=== PATIENT | female | born 1955 | race Caucasian/White ===

== ENCOUNTER 2019-01-22 17:04 | Inpatient (IN) ==
[2019-01-22] MEDS ORDERED: hydrALAZINE 20 MG/1 ML VIAL IV STA (19:09)
[2019-01-22 20:10] LABS: PT Patient Result 10.4 SECS; Partial Thromboplastin Time 24.3 SECS (0-40)
[2019-01-22 20:10] LABS: Alanine Aminotransferase 39 U/L (13-56); Albumin 3.2 G/DL (3.4-5.0); Alkaline Phosphatase 123 U/L (45-117); Aspartate Amino Transferase 20 U/L (0-37); Bilirubin,Total < 0.39 MG/DL (0.2-1.0); Blood Urea Nitrogen 18 MG/DL (7-18); Calcium 9.3 MG/DL (8.5-10.1); Glucose 96 MG/DL (74-106); Osmolality,Calculated 269.2 MOS/KG (273-304); Potassium 3.8 MMOL/L (3.5-5.1); Sodium 134 MMOL/L (136-145); Total Protein 8.3 G/DL (6.4-8.3)
[2019-01-22 20:19] LABS: Basophils # 0.1 10*3/uL (0.0-0.2); Basophils % 0.6 % (0.0-0.8); Eosinophils # 0.5 10*3/uL (0.0-0.87); Eosinophils % 3.3 % (0.00-10.9); Hematocrit 36.4 VOL% (35.7-47.0); Hemoglobin 11.2 GM/DL (12.0-16.0); Immature Granulocytes % 0.7 %; Immature Granulocytes Absolute 0.11 #; Lymphocytes # 2.7 10*3/uL (1.4-4.0); Lymphocytes % 16.4 % (21.3-54.2); Mean Corpuscular HGB Conc 30.8 GM/DL (32-36); Mean Corpuscular Hemoglobin 30 PG (27-34); Mean Corpuscular Volume 97.1 FL (87-102); Mean Platelet Volume 10.8 FL (9.6-12.0); Neutrophils # 11.9 10*3/uL (1.4-7.4); Platelet Count 218 T/CUMM (130-400); Red Blood Count 3.75 MC/CUMM (3.8-5.5); Red Cell Distribution Width 12.9 % (9.3-17.3); White Blood Count 16.3 T/CUMM (4-12)
[2019-01-22] MEDS ORDERED: ONDANSETRON 4 MG/2 ML VIAL IV PRN (22:26)
[2019-01-22] MEDS ORDERED: ACETAMINOPHEN 325 MG TABLET PO PRN (22:26)
[2019-01-22] MEDS ORDERED: ALBUTEROL/IPRATROPIUM 3 ML NEB RESP TX PRN (22:36)
[2019-01-22] MEDS ORDERED: tiZANidine 4 MG TABLET PO PRN (22:38)
[2019-01-22] MEDS ORDERED: LABETALOL 20 MG/4 ML SYRINGE IV PRN (23:59)
[2019-01-23] MEDS: CARVEDILOL 12.5 MG TABLET PO SCH ×3 (00:16→16:33)
[2019-01-23] MEDS: LISINOPRIL 10 MG TABLET PO SCH ×2 (00:16→21:47)
[2019-01-23] MEDS: FOLIC ACID 1 MG TABLET PO SCH ×2 (00:17→21:47)
[2019-01-23] MEDS: SERTRALINE 100 MG TABLET PO SCH ×2 (00:17→21:47)
[2019-01-23] MEDS: LEVOFLOXACIN INJ 750 MG in PREMIX 1 EACH IV SCH (00:27)
[2019-01-23 07:48] LABS: Basophils # 0.1 10*3/uL (0.0-0.2); Basophils % 0.5 % (0.0-0.8); Eosinophils # 0.4 10*3/uL (0.0-0.87); Eosinophils % 3.1 % (0.00-10.9); Hematocrit 33.3 VOL% (35.7-47.0); Hemoglobin 10.2 GM/DL (12.0-16.0); Immature Granulocytes % 0.4 %; Immature Granulocytes Absolute 0.05 #; Lymphocytes # 2.2 10*3/uL (1.4-4.0); Mean Corpuscular HGB Conc 30.6 GM/DL (32-36); Mean Corpuscular Hemoglobin 30 PG (27-34); Mean Corpuscular Volume 98.8 FL (87-102); Mean Platelet Volume 10.1 FL (9.6-12.0); Monocytes % 8.4 % (1.7-12.7); Neutrophils # 8.6 10*3/uL (1.4-7.4); Neutrophils % 69.6 % (38.7-73.9); Platelet Count 185 T/CUMM (130-400); Red Blood Count 3.37 MC/CUMM (3.8-5.5); Red Cell Distribution Width 13.1 % (9.3-17.3); White Blood Count 12.4 T/CUMM (4-12)
[2019-01-23] MEDS: PANTOPRAZOLE 40 MG TABLET PO SCH (08:51)
[2019-01-23] MEDS: FUROSEMIDE 20 MG TABLET PO SCH (08:51)
[2019-01-23 12:49] LABS: Total Protein,Body Fluid 3.4 G/DL
[2019-01-23 13:08] LABS: Lymphocytes,Pleural Fluid 100 %; RBC,Pleural Fluid > 100000 T/CUMM
[2019-01-23] MEDS ORDERED: Osimertinib Mesylate [Tagrisso] 80 MG PO SCH (18:00)
[2019-01-23] MEDS ORDERED: LOPERAMIDE 2 MG CAPSULE PO PRN (18:58)
[2019-01-23] MEDS: LACTOBACILLUS ACIDOPHILUS/BULGARICUS CAPLET PO SCH (21:46)
[2019-01-24] MEDS: LEVOFLOXACIN INJ 750 MG in PREMIX 1 EACH IV SCH ×2 (00:24→22:51)
[2019-01-24] MEDS: LACTOBACILLUS ACIDOPHILUS/BULGARICUS CAPLET PO SCH ×2 (09:27→22:44)
[2019-01-24] MEDS: FUROSEMIDE 20 MG TABLET PO SCH (09:27)
[2019-01-24] MEDS: PANTOPRAZOLE 40 MG TABLET PO SCH (09:28)
[2019-01-24] MEDS: CARVEDILOL 12.5 MG TABLET PO SCH ×2 (09:28→16:28)
[2019-01-24] MEDS: FOLIC ACID 1 MG TABLET PO SCH (22:45)
[2019-01-24] MEDS: LISINOPRIL 10 MG TABLET PO SCH (22:45)
[2019-01-24] MEDS: SERTRALINE 100 MG TABLET PO SCH (22:45)
[2019-01-25 08:23] VITALS: BP 153/93
[2019-01-25] MEDS: LACTOBACILLUS ACIDOPHILUS/BULGARICUS CAPLET PO SCH (08:36)
[2019-01-25] MEDS: FUROSEMIDE 20 MG TABLET PO SCH (08:36)
[2019-01-25] MEDS: CARVEDILOL 12.5 MG TABLET PO SCH (08:36)
[2019-01-25] MEDS: PANTOPRAZOLE 40 MG TABLET PO SCH (08:36)
[2019-01-25] MEDS ORDERED: cefTRIAXone 1,000 MG in SYRINGE 1 EACH IV SCH (10:00)
[2019-01-25] MEDS ORDERED: HEPARIN LOCK FLUSH 500 UNIT/5 ML SYRINGE IV ONE (10:06)
== END 2019-01-25 10:55 | disposition home or self-care (01) | DRG 180 ==
LOC: N.ED 17:04 → N.EDINP 22:26 → N.TELES 23:32 → N.4E 01-25 06:29
PROVIDERS: ADMIT Hospitalist; ATTEND Hospitalist

== ENCOUNTER 2019-12-27 22:25 | Inpatient (IN) ==
[2019-12-28] MEDS ORDERED: NOREPINEPHRINE 4 MG/4 ML VIAL IV ONE (00:06)
[2019-12-28] MEDS ORDERED: NOREPINEPHRINE 8 MG in SODIUM CHLORIDE 0.9% 242 ML IV PRN (00:10)
[2019-12-28] MEDS ORDERED: ALBUTEROL/IPRATROPIUM 3 ML NEB RESP TX PRN (00:55)
[2019-12-28] MEDS ORDERED: SODIUM CHLORIDE 0.9% 1,000 ML IV PRN (00:56)
[2019-12-28] MEDS ORDERED: SODIUM CHLORIDE 0.45% 1,000 ML IV SCH (01:00)
[2019-12-28] MEDS: methylPREDNISolone SOD SUC 40 MG/1 ML VIAL IV SCH ×3 (01:05→17:32)
[2019-12-28] MEDS: ONDANSETRON 4 MG/2 ML VIAL IV PRN ×2 (01:08→21:02)
[2019-12-28] MEDS: MORPHINE 4 MG/1 ML VIAL IV PRN ×3 (01:09→20:57)
[2019-12-28] MEDS: SODIUM CHLORIDE 0.9% 1,000 ML IV SCH (01:59)
[2019-12-28] MEDS: PIPERACILLIN/TAZOBACTAM 3,375 MG in SODIUM CHLORIDE 0.9% 100 ML IV SCH ×3 (02:03→17:32)
[2019-12-28 02:10] LABS: Basophils % 0.3 % (0.0-0.8); Eosinophils % 0.4 % (0.00-10.9); Hemoglobin 6.5 GM/DL (12.0-16.0); Immature Granulocytes % 5.6 %; Immature Granulocytes Absolute 0.42 #; Lymphocytes # 1.4 10*3/uL (1.4-4.0); Lymphocytes % 18.8 % (21.3-54.2); Mean Corpuscular Volume 110.5 FL (87-102); Mean Platelet Volume 11.3 FL (9.6-12.0); Monocytes % 4.5 % (1.7-12.7); NRBC # 0.02 10*3/uL; Neutrophils % 70.4 % (38.7-73.9); Platelet Count 104 T/CUMM (130-400); Red Cell Distribution Width 22.9 % (9.3-17.3); White Blood Count 7.5 T/CUMM (4-12)
[2019-12-28 02:33] LABS: Bilirubin,Total 0.9 MG/DL (0.2-1.0); Calcium 7.9 MG/DL (8.5-10.1); Osmolality,Calculated 291.8 MOS/KG (273-304); Total Protein 5.1 G/DL (6.4-8.3)
[2019-12-28 02:37] LABS: Band Neutrophils 1 % (0-10); Lymphocytes 12 % (20-55); Metamyelocytes 1 %; Nucleated Red Blood Cells 1 (0-5); Platelet Estimate Normal; Segmented Neutrophils 83 % (50-85); Total Cells Counted 100
[2019-12-28 02:38] LABS: Anisocytosis 2+; Macrocytosis 1+
[2019-12-28 02:39] LABS: Spherocytes Few
[2019-12-28 02:40] LABS: Polychromasia Slight
[2019-12-28 09:10] LABS: Apearance,Urine CLOUDY (Clear); Bacteria,Urine Occasional /HPF (Few); Bilirubin,Urine Negative (Negative); Blood, Urine Small mg/dL (Negative); Glucose,Urine (UA) Negative (Negative); Hyaline Casts,Urine 7 /LPF (0-3); Ketones,Urine Negative (Negative); Mucus,Urine Occasional /LPF (Occasional); Nitrite,Urine Positive (Negative); Protein,Urine Negative; RBC,Urine 6 /HPF (0-4); Squamous Epithelial Cell,Urine Occasional /HPF (0-10); Urine Color Amber (Yellow); Urine Specific Gravity 1.015 (1.001-1.035); WBC,Urine 12 /HPF (0-6)
[2019-12-28 09:29] LABS: Basophils % 0.3 % (0.0-0.8); Eosinophils % 0.1 % (0.00-10.9); Hematocrit 29.8 VOL% (35.7-47.0); Hemoglobin 9.5 GM/DL (12.0-16.0); Immature Granulocytes % 8.1 %; Immature Granulocytes Absolute 0.55 #; Lymphocytes # 0.9 10*3/uL (1.4-4.0); Lymphocytes % 13.4 % (21.3-54.2); Mean Corpuscular HGB Conc 31.9 GM/DL (32-36); Mean Platelet Volume 10.6 FL (9.6-12.0); Monocytes % 2.7 % (1.7-12.7); Neutrophils % 75.4 % (38.7-73.9); Platelet Count 91 T/CUMM (130-400); Red Blood Count 2.98 MC/CUMM (3.8-5.5); Red Cell Distribution Width 22.9 % (9.3-17.3); White Blood Count 6.8 T/CUMM (4-12)
[2019-12-28] MEDS: ENOXAPARIN 120 MG/0.8 ML SYRINGE SUBCUT SCH (09:30)
[2019-12-28] MEDS: PANTOPRAZOLE 40 MG TABLET PO SCH (09:31)
[2019-12-28 10:10] LABS: Band Neutrophils 1 % (0-10); Hypochromasia 1+; Lymphocytes 13 % (20-55); Ovalocytes Slight; Platelet Estimate Decreased; Segmented Neutrophils 86 % (50-85); Total Cells Counted 100
[2019-12-28] MEDS: FOLIC ACID 1 MG TABLET PO SCH (21:08)
[2019-12-29] MEDS: PIPERACILLIN/TAZOBACTAM 3,375 MG in SODIUM CHLORIDE 0.9% 100 ML IV SCH ×3 (02:12→17:00)
[2019-12-29] MEDS: SODIUM CHLORIDE 0.9% 1,000 ML IV SCH ×3 (02:13→21:11)
[2019-12-29 06:06] LABS: Basophils % 0.3 % (0.0-0.8); Hematocrit 28.8 VOL% (35.7-47.0); Hemoglobin 9.3 GM/DL (12.0-16.0); Immature Granulocytes % 7.6 %; Immature Granulocytes Absolute 0.88 #; Lymphocytes # 1.6 10*3/uL (1.4-4.0); Lymphocytes % 13.9 % (21.3-54.2); Mean Corpuscular HGB Conc 32.3 GM/DL (32-36); Mean Platelet Volume 10.7 FL (9.6-12.0); NRBC # 0.06 10*3/uL; Neutrophils % 73.2 % (38.7-73.9); Platelet Count 80 T/CUMM (130-400); Red Blood Count 2.91 MC/CUMM (3.8-5.5); Red Cell Distribution Width 23.8 % (9.3-17.3); White Blood Count 11.6 T/CUMM (4-12)
[2019-12-29 06:21] LABS: Albumin 2.2 G/DL (3.4-5.0); Bilirubin,Total 0.9 MG/DL (0.2-1.0); Calcium 8.4 MG/DL (8.5-10.1); Osmolality,Calculated 285.2 MOS/KG (273-304); Total Protein 5.5 G/DL (6.4-8.3)
[2019-12-29 06:25] LABS: Band Neutrophils 1 % (0-10); Hypochromasia 1+; Lymphocytes 19 % (20-55); Platelet Estimate Decreased; Segmented Neutrophils 75 % (50-85); Total Cells Counted 100
[2019-12-29] MEDS: ENOXAPARIN 120 MG/0.8 ML SYRINGE SUBCUT SCH (09:40)
[2019-12-29] MEDS: methylPREDNISolone SOD SUC 40 MG/1 ML VIAL IV SCH ×2 (09:40→21:08)
[2019-12-29] MEDS: PANTOPRAZOLE 40 MG TABLET PO SCH (09:40)
[2019-12-29] MEDS: MORPHINE 4 MG/1 ML VIAL IV PRN (12:35)
[2019-12-29] MEDS: ONDANSETRON 4 MG/2 ML VIAL IV PRN ×2 (12:36→16:51)
[2019-12-29] MEDS ORDERED: tiZANidine 4 MG TABLET PO PRN (15:56)
[2019-12-29] MEDS: carvediloL 12.5 MG TABLET PO SCH (21:07)
[2019-12-29] MEDS: SERTRALINE 100 MG TABLET PO SCH (21:07)
[2019-12-29] MEDS: lisinopriL 10 MG TABLET PO SCH (21:07)
[2019-12-29] MEDS: FOLIC ACID 1 MG TABLET PO SCH (21:07)
[2019-12-30] MEDS: PIPERACILLIN/TAZOBACTAM 3,375 MG in SODIUM CHLORIDE 0.9% 100 ML IV SCH ×2 (01:48→09:20)
[2019-12-30 04:16] LABS: Basophils % 0.1 % (0.0-0.8); Hematocrit 26.3 VOL% (35.7-47.0); Hemoglobin 8.3 GM/DL (12.0-16.0); Immature Granulocytes % 5.4 %; Immature Granulocytes Absolute 0.47 #; Lymphocytes # 1.2 10*3/uL (1.4-4.0); Lymphocytes % 13.3 % (21.3-54.2); Mean Corpuscular HGB Conc 31.6 GM/DL (32-36); Mean Corpuscular Volume 101.5 FL (87-102); Mean Platelet Volume 11.5 FL (9.6-12.0); Monocytes % 6.1 % (1.7-12.7); NRBC # 0.13 10*3/uL; Neutrophils % 75.1 % (38.7-73.9); Platelet Count 73 T/CUMM (130-400); Red Blood Count 2.59 MC/CUMM (3.8-5.5); Red Cell Distribution Width 23.3 % (9.3-17.3); White Blood Count 8.7 T/CUMM (4-12)
[2019-12-30 04:40] LABS: Band Neutrophils 1 % (0-10); Hypochromasia 1+; Lymphocytes 14 % (20-55); Ovalocytes Slight; Platelet Estimate Decreased; Segmented Neutrophils 81 % (50-85); Total Cells Counted 100
[2019-12-30 04:46] LABS: Calcium 8.1 MG/DL (8.5-10.1); Osmolality,Calculated 288.1 MOS/KG (273-304)
[2019-12-30] MEDS ORDERED: TUBERCULIN SKIN TEST 0.1 ML SYRINGE INTRADERM ONE (08:36)
[2019-12-30] MEDS: SERTRALINE 100 MG TABLET PO SCH ×3 (09:21→20:37)
[2019-12-30] MEDS: carvediloL 12.5 MG TABLET PO SCH ×2 (09:21→20:37)
[2019-12-30] MEDS: PANTOPRAZOLE 40 MG TABLET PO SCH (09:21)
[2019-12-30] MEDS: MORPHINE 4 MG/1 ML VIAL IV PRN (09:22)
[2019-12-30] MEDS: SODIUM CHLORIDE 0.9% 1,000 ML IV SCH ×2 (09:26→19:24)
[2019-12-30] MEDS: APIXABAN 5 MG TABLET PO SCH ×2 (11:22→20:38)
[2019-12-30] MEDS: cephALEXin 500 MG CAPSULE PO SCH (20:37)
[2019-12-30] MEDS: lisinopriL 10 MG TABLET PO SCH (20:37)
[2019-12-30] MEDS: FOLIC ACID 1 MG TABLET PO SCH (20:37)
[2019-12-31 05:34] LABS: Basophils % 0.3 % (0.0-0.8); Eosinophils % 0.1 % (0.00-10.9); Hematocrit 26.2 VOL% (35.7-47.0); Hemoglobin 8.4 GM/DL (12.0-16.0); Lymphocytes # 1.6 10*3/uL (1.4-4.0); Lymphocytes % 16.1 % (21.3-54.2); Mean Corpuscular HGB Conc 32.1 GM/DL (32-36); Mean Corpuscular Volume 101.9 FL (87-102); Mean Platelet Volume 11.8 FL (9.6-12.0); Monocytes % 4.8 % (1.7-12.7); NRBC # 0.29 10*3/uL; Neutrophils % 69.7 % (38.7-73.9); Red Blood Count 2.57 MC/CUMM (3.8-5.5); Red Cell Distribution Width 23.2 % (9.3-17.3)
[2019-12-31 05:36] LABS: Platelet Count 64 T/CUMM (130-400)
[2019-12-31 06:08] LABS: Hypochromasia 1+; Lymphocytes 19 % (20-55); Nucleated Red Blood Cells 3 (0-5); Platelet Estimate Decreased; Segmented Neutrophils 80 % (50-85); Total Cells Counted 100
[2019-12-31] MEDS ORDERED: SODIUM CHLORIDE 0.9% 500 ML IV ONE ×2 (08:14→13:56)
[2019-12-31] MEDS: APIXABAN 5 MG TABLET PO SCH ×2 (09:28→20:29)
[2019-12-31] MEDS: SERTRALINE 100 MG TABLET PO SCH ×3 (09:28→20:29)
[2019-12-31] MEDS: carvediloL 12.5 MG TABLET PO SCH ×2 (09:28→20:30)
[2019-12-31] MEDS: cephALEXin 500 MG CAPSULE PO SCH ×2 (09:28→20:28)
[2019-12-31] MEDS: PANTOPRAZOLE 40 MG TABLET PO SCH (09:28)
[2019-12-31] MEDS ORDERED: KETOROLAC 15 MG/1 ML VIAL IV ONE (18:41)
[2019-12-31] MEDS: FOLIC ACID 1 MG TABLET PO SCH (20:29)
[2019-12-31] MEDS: SODIUM CHLORIDE 0.9% 1,000 ML IV SCH (20:32)
[2020-01-01] MEDS: APIXABAN 5 MG TABLET PO SCH ×2 (09:05→21:15)
[2020-01-01] MEDS: cephALEXin 500 MG CAPSULE PO SCH ×2 (09:05→21:15)
[2020-01-01] MEDS: SERTRALINE 100 MG TABLET PO SCH ×3 (09:05→21:15)
[2020-01-01] MEDS: PANTOPRAZOLE 40 MG TABLET PO SCH (09:05)
[2020-01-01] MEDS: carvediloL 12.5 MG TABLET PO SCH ×2 (09:05→21:15)
[2020-01-01] MEDS: ONDANSETRON 4 MG/2 ML VIAL IV PRN (09:22)
[2020-01-01 11:18] LABS: Basophils # 0.1 10*3/uL (0.0-0.2); Basophils % 0.4 % (0.0-0.8); Eosinophils # 0.1 10*3/uL (0.0-0.87); Eosinophils % 0.4 % (0.00-10.9); Hematocrit 27.5 VOL% (35.7-47.0); Hemoglobin 8.5 GM/DL (12.0-16.0); Immature Granulocytes % 11.5 %; Lymphocytes # 1.8 10*3/uL (1.4-4.0); Lymphocytes % 13.1 % (21.3-54.2); Mean Corpuscular HGB Conc 30.9 GM/DL (32-36); Mean Corpuscular Volume 103.4 FL (87-102); Monocytes % 9.2 % (1.7-12.7); NRBC # 0.51 10*3/uL; Neutrophils % 65.4 % (38.7-73.9); Red Blood Count 2.66 MC/CUMM (3.8-5.5); Red Cell Distribution Width 23.1 % (9.3-17.3)
[2020-01-01 11:20] LABS: Platelet Count 80 T/CUMM (130-400); White Blood Count 13.9 T/CUMM (4-12)
[2020-01-01 11:40] LABS: Band Neutrophils 1 % (0-10); Lymphocytes 14 % (20-55); Myelocytes 1 %; Nucleated Red Blood Cells 1 (0-5); Segmented Neutrophils 79 % (50-85); Total Cells Counted 100
[2020-01-01 11:41] LABS: Hypochromasia 1+; Macrocytosis 1+
[2020-01-01 11:43] LABS: Polychromasia Slight
[2020-01-01 11:44] LABS: Platelet Estimate Decreased
[2020-01-01] MEDS: MORPHINE 4 MG/1 ML VIAL IV PRN (12:16)
[2020-01-01] MEDS: FOLIC ACID 1 MG TABLET PO SCH (21:15)
[2020-01-02] MEDS: SODIUM CHLORIDE 0.9% 1,000 ML IV SCH (01:18)
[2020-01-02] MEDS: APIXABAN 5 MG TABLET PO SCH ×2 (08:48→21:34)
[2020-01-02] MEDS: SERTRALINE 100 MG TABLET PO SCH ×3 (08:49→21:34)
[2020-01-02] MEDS: carvediloL 12.5 MG TABLET PO SCH ×2 (08:49→21:34)
[2020-01-02] MEDS: PANTOPRAZOLE 40 MG TABLET PO SCH (08:49)
[2020-01-02] MEDS: cephALEXin 500 MG CAPSULE PO SCH ×2 (08:49→21:34)
[2020-01-02] MEDS: MORPHINE 4 MG/1 ML VIAL IV PRN (10:00)
[2020-01-02] MEDS: FOLIC ACID 1 MG TABLET PO SCH (21:34)
[2020-01-03] MEDS: SODIUM CHLORIDE 0.9% 1,000 ML IV SCH (05:39)
[2020-01-03] MEDS: cephALEXin 500 MG CAPSULE PO SCH ×2 (10:09→20:27)
[2020-01-03] MEDS: PANTOPRAZOLE 40 MG TABLET PO SCH (10:09)
[2020-01-03] MEDS: SERTRALINE 100 MG TABLET PO SCH ×3 (10:09→20:27)
[2020-01-03] MEDS: APIXABAN 5 MG TABLET PO SCH ×2 (10:09→20:29)
[2020-01-03] MEDS: MORPHINE 4 MG/1 ML VIAL IV PRN ×2 (10:14→20:41)
[2020-01-03] MEDS: carvediloL 12.5 MG TABLET PO SCH ×2 (18:27→20:28)
[2020-01-03] MEDS: FOLIC ACID 1 MG TABLET PO SCH (20:28)
[2020-01-04] MEDS: carvediloL 12.5 MG TABLET PO SCH (10:22)
[2020-01-04] MEDS: APIXABAN 5 MG TABLET PO SCH (10:23)
[2020-01-04] MEDS: cephALEXin 500 MG CAPSULE PO SCH (10:23)
[2020-01-04] MEDS: PANTOPRAZOLE 40 MG TABLET PO SCH (10:24)
[2020-01-04] MEDS: SERTRALINE 100 MG TABLET PO SCH (10:24)
[2020-01-04] MEDS ORDERED: PHENOL 1.4% THROAT SPRAY 177 ML BOTTLE PO PRN (10:52)
[2020-01-04 13:03] VITALS: BP 88/64
== END 2020-01-04 13:20 | disposition swing bed (61) | DRG 180 ==
LOC: N.CVR 23:43 → SUATTDRO 23:43 → N.CC 12-28 08:02 → N.4E 12-28 12:16
PROVIDERS: ADMIT Internal Medicine; ATTEND Internal Medicine